=== PATIENT | female | born 1980 ===

== ENCOUNTER 2018-07-18 09:10 | Outpatient (CLI) | payer BC ==
--- NOTE | 2018-07-18 10:55 | ULT ---
RIGHT BREAST ULTRASOUND AND LEFT BREAST ULTRASOUND: Date: 07/18/18 HISTORY: Palpable breast masses and abnormal mammogram. FINDINGS: Correlation is made with the mammogram from same date. Sonographic evaluation of the palpable abnormality in the 9 o'clock position of the right breast demo nstrates multiple cysts, the largest measuring 1.8 x 1.0 x 1.4 cm. Sonographic evaluation of the mass in the 4 o'clock position of the left breast on the mammogram jason esponds to a 3.0 x 1.6 x 3.8 cm cyst. IMPRESSION: BIRADS Category 2 - Benign findings. Return to annual mammographic screening. POS: OFF
== END 2018-07-18 09:11 | disposition home or self-care (01) ==
LOC: BICMAMMO 09:10
PROVIDERS: ATTEND Nurse Practitioner Women's Health
DX: N64.4 Mastodynia (principal); N63.10 Unspecified lump in the right breast, unspecified quadrant; N63.20 Unspecified lump in the left breast, unspecified quadrant
CPT/HCPCS: 77066; G0279